=== PATIENT | male | born 1975 | race Caucasian/White ===

== ENCOUNTER 2021-02-22 18:05 | Emergency (ER) | payer OTHER ==
[~2021-02-22] VITALS: Ht 177.8 cm; Wt 94.4 kg
--- NOTE | 2021-02-22 19:28 | PHYS DOC ---
Past History Additional Past Medical Histor: RUEL, LOW TESTOSTERONE Past Surgical History: No Surgical History General Adult EDM: Chief Complaint: BACK PAIN OR INJURY HPI: HPI: ".. I ve had problems with back pain in the past. ... I bent over in the shower.. and something sprain or strained... " " This pain is much worse than before... 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 Patient has previous injury. Has had previous MRIs and CTs to evaluate his back pain. The patient denies any fever chills. No history of cancer. No history of IV drug use. Has been able to urinate and defecate. Pain is localized in lumbar sacral area radiates down right leg. No recent travel. No specific ill contacts. Normally follows at [facility] Review of Systems: Review of Systems: Constitutional: Denies fever or chills Eyes: Denies change in visual acuity HENT: Denies nasal congestion or sore throat Respiratory: Denies cough or shortness of breath Cardiovascular: Denies chest pain or edema GI: Denies abdominal pain, nausea, vomiting, bloody stools or diarrhea : Denies dysuria Musculoskeletal: Complains of severe back pain Integument: Denies rash Neurologic: Denies headache, focal weakness or sensory changes Endocrine: Denies polyuria or polydipsia Lymphatic: Denies swollen glands Psychiatric: Denies depression or anxiety Family History: Family History: Noncontributory to presentation Current Medications: Current Meds: See nursing for home meds Allergies: Allergies: Allergies Coded Allergies Type Severity Reaction Last Updated Verified nifedipine Allergy Unknown 02/22/21 Yes Physical Exam: PE: Constitutional: Moderate acute distress, non-toxic appearance. [] HENT: Normocephalic, atraumatic, bilateral external ears normal, oropharynx moist, no oral exudates, nose normal. [] Eyes: PERRLA, EOMI, conjunctiva normal, no discharge. [] Neck: Normal range of motion, no tenderness, supple, no stridor. [] Cardiovascular:Heart rate regular rhythm, no murmur [] Lungs & Thorax: Bilateral breath sounds equal apex on auscultation [] Abdomen: Bowel sounds normal, soft, no tenderness, no masses, no pulsatile masses. [] Skin: Warm, dry, no erythema, no rash. [] Back: Lumbar sacral tenderness,, it radiates down the sciatic nerves. No CVA tenderness. [] Extremities right sciatic nerve tenderness, no cyanosis, no clubbing, ROM intact, no edema. [] Neurologic: Alert and oriented X 3, normal motor function, normal sensory function, no focal deficits noted. [] DTRs +2 patella and brachial. Psychologic: Affect anxious, judgement normal, mood normal. [] Current Patient Data: Vital Signs: Vital Signs Date Time Temp Pulse Resp B/P (MAP) Pulse Ox O2 Delivery O2 Flow Rate FiO2 02/22/21 18:12 97.7 79 16 121/75 (90 97 Room Air EKG: EKG: [] Radiology/Procedures: Radiology/Procedures: [][address] [address] IMAGING REPORT Signed PATIENT: ELDA RITTER ACCOUNT: [id number] : 1975 LOCATION: ER AGE: 45 SEX: M EXAM STATUS: REG ER ORD. PHYSICIAN: KHADAR ANG MD REASON: Severe lower back pain, prior injury- worse than prior PROCEDURE: CT LUMBAR SPINE WO CONTRAST CT lumbar spine without contrast. HISTORY: Severe low back pain Axial CT images were obtained through the lumbar spine. The lateral hydroelectric plant technician view shows extensive stool in the colon. There is no retroperitoneal adenopathy or aortic aneurysm. There is no acute lumbar fracture. There is unilateral spondylolysis at L5. There is no subluxation. There is facet arthritis at L4-5. There is mild bulging of the disc at L3-4. T12-L1, L1-2, L2-3-3 discs are unremarkable. There is a lateral disc bulge or protrusion on the right at L4-5 with foraminal narrowing. IMPRESSION: 1. Mild bulging of disc at L3-4 without spinal stenosis. 2. Degenerative disc disease at L4-5 with lateral disc bulge or protrusion on the right with foraminal stenosis on the right. 3. Mild foraminal narrowing on the right at L5-S1. 4. 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 5. No acute C-spine fracture. 6. Increased stool in the colon. PQRS Compliance Statement: One or more of the following individualized dose reduction techniques were utilized for this examination: 1. Automated exposure control 2. Adjustment of the mA and/or kV according to patient size 3. Use of iterative reconstruction technique Electronically signed by: Crow Carrera MD (02/22/2021 9:22 PM) [facility] DICTATED AND SIGNED BY: CROW CARRERA MD DATE: 02/22/212115 CC: KHADAR ANG MD; HAO FAUSTIN MD ~MTH0 0 Heart Score: C/O Chest Pain: N/A Risk Factors: Risk Factors: DM, Current or recent (<one month) smoker, HTN, HLP, family history of CAD, obesity. Risk Scores: Score 0 - 3: 2.5% MACE over next 6 weeks - Discharge Home Score 4 - 6: 20.3% MACE over next 6 weeks - Admit for Clinical Observation Score 7 - 10: 72.7% MACE over next 6 weeks - Early Invasive Strategies Course & Med Decision Making: Course & Med Decision Making Pertinent Labs and Imaging studies reviewed. (See chart for details) Ice packs as needed. Follow-up with primary care. Take this with me on follow- up. May need to contact her neurosurgeon. Tylenol and ibuprofen for pain. For marked pain may have Vicoprofen up to 4 times a day. Take Flexeril 10 mg up to 3 times a day for muscle spasm. Ice packs as needed for the next couple days. May advance moist heat if no reinjury. Impression: 1. Degenerative joint and disc changes lumbosacral spine 2. Sciatica. 3. Facet syndrome [] Dragon Disclaimer: Dragon Disclaimer: This electronic medical record was generated, in whole or in part, using a voice recognition dictation system. Departure Departure: Referrals: HAO FAUSTIN MD (PCP) Scripts Hydrocodone/Ibuprofen (HYDROCODONE-IBUPROFEN 7.5-200 ) 1 Each Tablet 1 TAB PO PRN Q6HRS PRN for PAIN, #30 TAB 0 Refills Prov: KHADAR ANG MD 02/22/21 Cyclobenzaprine Hcl (CYCLOBENZAPRINE HCL) 10 Mg Tablet 10 MG PO TID PRN for spasms, #90 TAB Prov: KHADAR ANG MD 02/22/21 Dragon Disclaimer This chart was dictated in whole or in part using Voice Recognition software in a busy, high-work load, and often noisy Emergency Department environment. It may contain unintended and wholly unrecognized errors or omissions. Dragon Disclaimer This chart was dictated in whole or in part using Voice Recognition software in a busy, high-work load, and often noisy Emergency Department environment. It may contain unintended and wholly unrecognized errors or omissions. KHADAR ANG MD Feb 22, 2021 19:28
[2021-02-22 20:01] LABS: BILIRUBIN,URINE NEG (NEG); CLARITY,URINE CLEAR; COLOR,URINE YELLOW; GLUCOSE,URINE NEG (NEG); UROBILINOGEN,URINE 0.2 mg/dL (0.2 mg/dL)
[2021-02-22 20:02] LABS: BACTERIA,URINE 0 /HPF (0-FEW); NITRITE,URINE NEG (NEG); RBC,URINE 0 /HPF (0-2); WBC,URINE 0 /HPF (0-4)
[2021-02-22] MEDS: MORPHINE SULFATE 10 MG/ML SYRINGE. SQ ONE (20:57)
[2021-02-22] MEDS: KETOROLAC 60 MG/2 ML VIAL. IM ONE (21:00)
[2021-02-22] MEDS: ORPHENADRINE CITRATE 60 MG/2 ML VIAL. IM ONE (21:02)
[2021-02-22] MEDS: methylPREDNISolone ACETATE 40 MG/ML VIAL. IM ONE (21:04)
--- NOTE | 2021-02-22 21:24 | RAD ---
CT lumbar spine without contrast. HISTORY: Severe low back pain Axial CT images were obtained through the lumbar spine. The lateral ticket sales supervisor view shows extensive stool in the colon. There is no retroperitoneal adenopathy or aortic aneurysm. There is no acute lumbar fra cture. There is unilateral spondylolysis at L5. There is no subluxation. There is facet arthritis at L4-5. There is mild bulging of the disc at L3-4. T12-L1, L1-2, L2-3-3 discs are unremarkable. There i s a lateral disc bulge or protrusion on the right at L4-5 with foraminal narrowing. IMPRESSION: 1. Mild bulging of disc at L3-4 without spinal stenosis. 2. Degenerative disc disease at L4-5 with lateral disc bulge or protrusion on the right with foramina l stenosis on the right. 3. Mild foraminal narrowing on the right at L5-S1. 4. 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 5. No acute C-spine fracture. 6. Increased stool in the colon. PQRS Compliance Statement: One or more of the following individualized dose reduction techniques were utilized for this examinat ion: 1. Automated exposure control 2. Adjustment of the mA and/or kV according to patient size 3. Use of iterative reconstruction technique Electronically signed by: Crow Carrera MD (02/22/2021 9:22 PM) [facility]
[2021-02-22] MEDS ORDERED: HYDR-1179 PO ×2 (21:56→21:57)
[2021-02-22] MEDS ORDERED: CYCL10TA19 PO (21:56)
[2021-02-22 22:18] VITALS: BP 140/72
== END 2021-02-22 22:22 | disposition home or self-care (01) ==
LOC: ER 18:05
DX: M54.41 Lumbago with sciatica, right side (principal); M47.897 Other spondylosis, lumbosacral region; Z88.8 Allergy status to other drugs, medicaments and biological substances
CPT/HCPCS: 72131; 81001; 96372; 99285; J1030; J1885; J2270; J2360

== ENCOUNTER → 2021-05-14 | Outpatient (CLI) | payer OTHER ==
[~2021-05-14] MED LIST: ALPR1TAB2 PO; CYCL10TA19 PO; HYDR-1179 PO; LISI1TAB39 PO; LORA-254 PO; PANT40TA3 PO; TADA5TAB PO; TEST200V3 IM
[2021-05-18 10:55] VITALS: BP 119/77
== END ==
LOC: LAB 08:30
PROVIDERS: ATTEND Otolaryngology
DX: Z01.812 Encounter for preprocedural laboratory examination (principal); Z20.822 Contact with and (suspected) exposure to COVID-19
CPT/HCPCS: C9803; U0003

== ENCOUNTER → 2021-05-18 | Day surgery (SDC) | payer OTHER ==
[~2021-05-18] MED LIST changes: +0.9 % SODIUM CHLORIDE 10 ML VIAL. IJ ONE; +ACETAMINOPHEN 500 MG TABLET PO ONE; +DEXAMETHASONE SOD PHOS 20 MG/5 ML VIAL. ONE; +GELATIN SPONGE SIZE 12-7MM SPONGE. ONE; +IPRATRPIUM/ALBUTEROL 0.5/2.5MG 3 ML NEBU. NEB PRN; +IV RINGERS SOLUTION,LACTATED 1,000 ML IV SCH; +KETOROLAC 30 MG/ML VIAL. ONE; +LIDOCAINE 1%/EPI 1:100,000 20 ML VIAL. IJ ONE; +LIDOCAINE 1%/EPI 1:100,000 20 ML VIAL. ONE; +LIDOCAINE 2% PF 5 ML VIAL. ONE; +MIDAZOLAM HCL PF 2 MG/2 ML VIAL. IV ONE; +MIDAZOLAM HCL PF 2 MG/2 ML VIAL. ONE; +ONDANSETRON PF 4 MG/2 ML VIAL. IV PRN; +ONDANSETRON PF 4 MG/2 ML VIAL. ONE; +OXYMETAZOLINE 0.05% NASAL SPRAY 30ML BOTTLE. NS ONE; +PROPOFOL 10,000 MCG/ML (20ML) VIAL IV ONE; +ROCURONIUM 50 MG/5 ML VIAL. ONE; +SEVOFLURANE 61 TO 120 MINUTES. IH ONE; +SUCCINYLCHOLINE 200 MG/10 ML VIAL. ONE
[2021-05-18 10:55] VITALS: BP 119/77
--- NOTE | 2021-05-18 12:14 | OP ---
DATE OF SURGERY: 05/18/2021 PREOPERATIVE DIAGNOSES: Nasal obstruction with a deviated nasal septum and inferior turbinate hypertrophy. POSTOPERATIVE DIAGNOSES: Nasal obstruction with a deviated nasal septum and inferior turbinate hypertrophy. PROCEDURE PERFORMED: Septoplasty with radiofrequency reduction of the inferior turbinate on the right side. INDICATIONS FOR THE PROCEDURE: Nasal obstruction, mouth breathing. ANESTHESIA: General anesthetic. BLOOD LOSS: Less than 15 mL. The tissue was harvested, but it was not submitted to Pathology for evaluation. DESCRIPTION OF PROCEDURE: The patient was brought to the operating room. He was placed on the operating table in supine position and general anesthetic was administered. When the patient's airway was adequately controlled, the table was rotated 90 degrees. His nose was then evaluated and the area was prepped and draped after sterile fashion. The nose was then cleaned internally with Betadine, after which lidocaine 1% with epinephrine was injected into the nasal turbinate mucosa along with cottonoids containing Afrin. A curvilinear incision was then made along the mucocutaneous border and the mucoperichondrium was elevated along the length of the septum, particularly involving the deviated portion into the left side, which also formed a ridge along the premaxillary crest. Anteriorly, there was some bossing and prominence of the lower lateral cartilage that was gradually and gently released with the use of scalpel and a Cassidy dissector. This then freed the anterior tip of the cartilage of the septum. After a complete skeletonization was accomplished, then selective removal of slivers of the cartilage was undertaken, which gave the septum a more perpendicular position and relieved the obstruction inferiorly to the left. At the cartilaginous bony junction, there was a dislocation of the septum. This was then removed and bony portions which were deformed and contributed to the base deviation were sequentially removed, maintaining position of the cartilage, but relieving the obstruction. When this was completed, the nasal operative site was then irrigated and cleaned. The mucosa was intact. There was no violation of the opposite side and the elevated flap of mucosa was then reapproximated to the modified cartilage. This was completed with 4-0 chromic suture and the incision site was closed. The preoperative examination then determined that the left inferior turbinate was compressed by the deviation and therefore its hypertrophy was felt not to be the contributing cause for the nasal obstructive symptoms. Therefore, only the right inferior turbinate was treated. This was accomplished by injecting normal saline into the turbinate mucosa expanding it and then placing a radiofrequency probe from a Coblation unit into the mucosa and applying radiofrequency energy. This was observed to cause collapsing of the soft tissue. When that was completed, the turbinate was outfractured. The left side was then examined posteriorly and there was an opportunity to outfracture the posterior portion of the inferior septum on the left side and that was accomplished also. The nose was then irrigated and the nasopharynx was suctioned. No active bleeding was occurring and the procedure was then completed. Gelfoam was placed in the nose for bracing material on each side and the patient was recovered from his anesthesia and taken to recovery room in stable condition. CORAL DR: Se TID: [id number]
== END | disposition home or self-care (01) ==
LOC: SURG 07:50 → MERGE 08:30
PROVIDERS: ATTEND Otolaryngology
DX: J34.2 Deviated nasal septum (principal); J34.89 Other specified disorders of nose and nasal sinuses; J34.3 Hypertrophy of nasal turbinates; K21.9 Gastro-esophageal reflux disease without esophagitis; I10 Essential (primary) hypertension; G47.30 Sleep apnea, unspecified; E78.00 Pure hypercholesterolemia, unspecified; F41.9 Anxiety disorder, unspecified; F32.9 Major depressive disorder, single episode, unspecified; Z72.89 Other problems related to lifestyle; Z98.890 Other specified postprocedural states; Z79.899 Other long term (current) drug therapy; Z88.8 Allergy status to other drugs, medicaments and biological substances
CPT/HCPCS: 30520; 30801; J0171; J0330; J0696; J1100; J1885; J2001; J2250; J2405; J2704; J3010; J7120; A4657